=== PATIENT | female | born 1995 | race Caucasian/White ===

== ENCOUNTER 2018-05-03 05:44 | Inpatient (IN) | payer OTHER ==
[~2018-05-03] VITALS: Ht 167.6 cm; Wt 92.1 kg
[~2018-05-03 05:44] MED LIST: PREN1TAB46 PO; PTU; [UNRECOGNIZED DRUG - OTHER]
[2018-05-03] MEDS ORDERED: CITRIC ACID/SODIUM CITRATE 30 ML SOLUTION. PO ONE (06:00)
[2018-05-03] MEDS: IV RINGERS,LACTATED 1000ML 1,000 ML IV SCH ×2 (06:47→10:15)
[2018-05-03 07:04] LABS: HEMATOCRIT 27.9 % (36.0-47.0); HEMOGLOBIN 9.2 g/dL (12.0-15.5); RED BLOOD COUNT 3.54 x10^6/uL (3.50-5.40); RED CELL DISTRIBUTION WIDTH 14.8 % (11.5-14.5); WHITE BLOOD COUNT 13.4 x10^3/uL (4.0-11.0)
--- NOTE | 2018-05-03 07:04 | PDOC1 ---
OB - History Hx of Present Care: Good Care Ultrasounds: Normal mid trimester US Obstetrical Complications: None Medical Complications: None Past Family/Social History * Past Medical, Surgical, Family and Obstetric Histories reviewed from chart. Rubella: Immune RPR/VDRL: Negative GBS Status: Negative HBsAG: Negative OB - Chief Complaint & HPI Date of Admission: Date of Admission: May 03, 2018 at 05:44 Chief Complaint/History : 2 Para: 1 EGA: 39 Reason for admission: section Indication for : desires repeat Admission Nurse Assessment Rev: Yes OB - Admission Exam Physical Exam HEENT: Normal Heart: Regular Rate Lungs: Clear Abdomen: Gravid, Non tender, Soft Extremities: Edema Reflexes: Normal Cervical Dilatation: 1cm Effacement: 50% Station: -3 Membranes: Intact Heart Rate: Normal Accelerations: Accelerations Present Decelerations: No decelerations Contractions on Admission: 6-10 Minutes Apart Intensity: Mild Text A: 39 wks IUP Previous c/s P: Admit for repeat c/s. MIREILLE SMITH Jr, MD May 03, 2018 07:04
[2018-05-03] MEDS ORDERED: KETOROLAC 30 MG/ML VIAL. IV PRN ×2 (07:15→09:15)
[2018-05-03 07:52] LABS: BILIRUBIN,URINE NEGATIVE (NEG); CLARITY,URINE CLEAR; COLOR,URINE YELLOW; NITRITE,URINE NEGATIVE (NEG); PH,URINE 6.5; PROTEIN,URINE NEGATIVE (NEG-TRACE)
[2018-05-03] MEDS ORDERED: BUPIVACAINE MPF 0.75% DEXTROSE 2 ML AMPUL. ONE (07:54)
[2018-05-03] MEDS ORDERED: MORPHINE PF 5 MG/10 ML VIAL. ONE (07:55)
[2018-05-03] MEDS ORDERED: fentaNYL PF VIAL 100 MCG/2 ML VIAL ONE (07:55)
[2018-05-03] MEDS ORDERED: DEXAMETHASONE SOD PHOS 20 MG/5 ML VIAL. ONE (07:56)
[2018-05-03] MEDS ORDERED: ONDANSETRON PF 4 MG/2 ML VIAL. ONE (07:56)
[2018-05-03] MEDS ORDERED: PHENYLEPHRINE in 0.9% NACL PF 1 MG/10 ML SYRINGE. IV ONE (07:56)
[2018-05-03] MEDS ORDERED: OXYTOCIN 10 UNIT/ML VIAL. ONE ×3 (07:56)
[2018-05-03 08:02] LABS: BACTERIA,URINE 0 /HPF (0-FEW); RBC,URINE 0 /HPF (0-2); WBC,URINE OCC /HPF (0-4)
--- NOTE | 2018-05-03 09:04 | PDOC4 ---
OB Operative Note Date: May 03, 2018 PRE OP DIAGNOSIS: Previoujs C- section POST OP DIAGNOSIS: Previous C- section OPERATION PERFORMED: R [facility] Surgeon Dr. Ivan Composing Room Machinist Dr. Aleman Anesthesia: Regional (Spinal) Blood Loss 700 ml Specimen placenta and infant OB Findings: Position (Vertex), Sex (Male), (8/9), Weight (8 Lb), Fluid ( Clear), Nuchal Cord (x1) Complications none MIREILLE IVAN Jr, MD May 03, 2018 09:04
[2018-05-03] MEDS ORDERED: 0.9 % SODIUM CHLORIDE 10 ML DISP.SYRIN. IV PRN (09:15)
[2018-05-03] MEDS ORDERED: ONDANSETRON PF 4 MG/2 ML VIAL. IV PRN (09:15)
[2018-05-03] MEDS ORDERED: OXYTOCIN 30 UNIT/500 ML PREMIX 500 ML IV PRN (09:15)
[2018-05-03] MEDS ORDERED: diphenhydrAMINE ORAL ELIXIR 12.5 MG/5 ML ML PO PRN (09:15)
[2018-05-03] MEDS ORDERED: MAG HYDROX/ALUMINUM HYD/SIMETH 30 ML ORAL.SUSP PO PRN (09:15)
[2018-05-03] MEDS ORDERED: SIMETHICONE 80 MG TAB.CHEW PO PRN (09:15)
[2018-05-03] MEDS ORDERED: ZOLPIDEM 5 MG TABLET. PO PRN (09:15)
[2018-05-03] MEDS ORDERED: PHYTONADIONE NEONATAL 1 MG/0.5 ML SYRINGE. SQ ONE (09:30)
[2018-05-03] MEDS ORDERED: ERYTHROMYCIN 0.5% OPHTH OINTMENT 1GM TUBE. OU ONE (09:30)
[2018-05-03] MEDS ORDERED: HEPATITIS B VAX PF for NSY/VFC 10 MCG/0.5 ML SYRINGE. VAX IM ONE (09:30)
[2018-05-03] MEDS ORDERED: diphenhydrAMINE 50 MG/ML VIAL IVP PRN (10:30)
[2018-05-03 11:40] VITALS: BP 134/78
[2018-05-03 11:55] VITALS: BP 123/72
--- NOTE | 2018-05-03 11:56 | OP ---
DATE OF SURGERY: PREOPERATIVE DIAGNOSES: 1. 39 weeks intrauterine . 2. Previous section x 1. POSTOPERATIVE DIAGNOSES: 1. 39 weeks intrauterine . 2. Previous section x 1. PROCEDURE: Repeat low transverse section. SURGEON: Mireille Ivan MD LACE WINDER: Dr. Aleman. ANESTHESIA: Spinal. ESTIMATED BLOOD LOSS: 700 mL. COMPLICATIONS: None. FINDINGS: Viable male infant, Apgars 8 and 9, weight 8 pounds. Nuchal cord x 1, 3-vessel cord, placenta delivered manually. SUMMARY: A 22-year-old 2, para 1 at 39 weeks, presented for repeat section. She was counseled on the risks, benefits and expectations and voiced clear understanding to proceed. DESCRIPTION OF PROCEDURE: The patient was taken to surgery suite and placed in dorsal supine position. She was prepped with ChloraPrep and draped in sterile fashion. After adequate anesthesia, a Pfannenstiel skin incision was made with scalpel down to and through the fascia. Fascia was extended laterally using curved Nunez scissors. The superior edge of the fascia was grasped with 2 Renetta clamps and dissected free off the abdominal rectus muscles using blunt dissection along with Bovie cautery. The same process took place inferiorly. The abdominal rectus muscle was dissected bluntly at the midline. The left peritoneum was grasped with 2 hemostats and entered sharply with Metzenbaum scissors. This incision was extended superiorly as well as inferiorly. The Sonny ring retractor was placed. Bladder flap was created using Metzenbaum scissors and blunt dissection. A low transverse hysterotomy incision was made with scalpel down to the amniotic sac. The hysterotomy incision was extended laterally and superiorly digitally. Amniotomy was performed bluntly. With the aid of fundal pressure, the 's head was delivered in a smooth atraumatic manner. Nuchal cord x 1 was visualized and reduced. Additional fundal pressure, the anterior shoulder was delivered followed by posterior shoulder. Rest of male infant was delivered. Infant was suctioned with a bulb syringe orally and nasally. Umbilical cord was clamped twice and cut and viable male infant was handed to waiting nursing staff. Umbilical cord blood was then obtained. Three-vessel cord and placenta was delivered manually. The uterus was exteriorized, cleared of clot and debris with a moist lap. The hysterotomy incision was reapproximated using 1-0 Vicryl suture in running locked fashion. A [id number] suture was placed in the left apex of the hysterotomy incision for better hemostasis. Uterus palpated firm. Fallopian tubes and ovaries appeared normal bilaterally. Posterior cul-de-sac was cleared of clot and debris with moist lap. Uterus was returned to the abdomen. The hysterotomy incision was reviewed and was hemostatic. Pericolic gutters were cleared of clot and debris with a moist lap. Interceed was placed over the hysterotomy incision in an inverted T fashion. The Sonny ring retractor was removed. The peritoneum was reapproximated using 1-0 Vicryl in a running fashion. Fascia was reapproximated using 0 Vicryl suture in a running fashion. Skin was reapproximated using 4-0 Vicryl suture in subcuticular manner. The patient tolerated the procedure well and was taken to Recovery Room in stable condition. Sponge and needle count correct x 3. MIREILLE IVAN MD DR: ALEXIS/clem JOB#: [id number] / [id number]
[2018-05-03 12:20] VITALS: BP 107/66
[2018-05-03 12:50] VITALS: BP 116/82
[2018-05-03] MEDS ORDERED: DIPHTH,PERTUSS(ACELL),TET TOX 0.5 ML DISP.SYRIN. VAX IM ONE (13:00)
[2018-05-03 13:17] VITALS: BP 123/84
[2018-05-03] MEDS: DOCUSATE SODIUM 100 MG CAPSULE. PO PRN (17:07)
[2018-05-03] MEDS: FERROUS SULFATE 325 MG TABLET. PO SCH (17:07)
[2018-05-03 23:25] VITALS: BP 100/61
[2018-05-04] MEDS: IBUPROFEN 400 MG TABLET. PO PRN ×3 (00:52→18:13)
[2018-05-04 06:18] VITALS: BP 117/77
[2018-05-04] MEDS: FERROUS SULFATE 325 MG TABLET. PO SCH ×2 (07:10→16:16)
[2018-05-04] MEDS: DOCUSATE SODIUM 100 MG CAPSULE. PO SCH ×2 (07:10→20:48)
[2018-05-04] MEDS: oxyCODONE/APAP 5/325 1 TAB TABLET PO PRN ×2 (07:10→16:16)
[2018-05-04 07:29] LABS: BASO % 0 % (0-3); EOS % 0 % (0-3); LYMPH # 3.2 x10^3/uL (1.0-4.8); LYMPH % 26 % (24-48); MEAN CORPUSCULAR HEMOGLOBIN 26 pg (25-35); MEAN CORPUSCULAR HGB CONC 33 g/dL (31-37); MEAN CORPUSCULAR VOLUME 79 fL (79-100); MONO # 0.7 x10^3/uL (0.0-1.1); MONO % 6 % (0-9); NEUT # 8.2 x10^3uL (1.8-7.7); NEUT % 68 % (31-73); PLATELET COUNT 159 x10^3/uL (140-400); RED CELL DISTRIBUTION WIDTH 14.8 % (11.5-14.5); WHITE BLOOD COUNT 12.1 x10^3/uL (4.0-11.0)
[2018-05-04 07:31] LABS: HEMATOCRIT 20.5 % (36.0-47.0); HEMOGLOBIN 6.8 g/dL (12.0-15.5)
--- NOTE | 2018-05-04 10:30 | PDOC ---
OB Progress Note Date of Service 05/04/18 Time of Evaluation 1030 Notes Pt. feeling well. No c/o H/A, CP, SOB or dizziness with ambulation. Lab Laboratory Tests Test 05/03/18 06:20 05/03/18 07:20 05/04/18 06:55 White Blood Count 13.4 x10^3/uL (4.0-11.0) 12.1 x10^3/uL (4.0-11.0) Red Blood Count 3.54 x10^6/uL (3.50-5.40) 2.60 x10^6/uL (3.50-5.40) Hemoglobin 9.2 g/dL (12.0-15.5) 6.8 g/dL (12.0-15.5) Hematocrit 27.9 % (36.0-47.0) 20.5 % (36.0-47.0) Mean Corpuscular Volume 79 fL (79-100) 79 fL (79-100) Mean Corpuscular Hemoglobin 26 pg (25-35) 26 pg (25-35) Mean Corpuscular Hemoglobin Concent 33 g/dL (31-37) 33 g/dL (31-37) Red Cell Distribution Width 14.8 % (11.5-14.5) 14.8 % (11.5-14.5) Platelet Count 182 x10^3/uL (140-400) 159 x10^3/uL (140-400) Treponema pallidum Antibody Nonreactive (Nonreactive) Urine Collection Type Unknown Urine Color Yellow Urine Clarity Clear Urine pH 6.5 Urine Specific [place] 1.020 Urine Protein Negative mg/dL (NEG-TRACE) Urine Glucose (UA) Negative mg/dL (NEG) Urine Ketones (Stick) Negative mg/dL (NEG) Urine Blood Negative (NEG) Urine Nitrite Negative (NEG) Urine Bilirubin Negative (NEG) Urine Urobilinogen Dipstick 1.0 mg/dL (0.2 mg/dL) Urine Leukocyte Esterase Trace (NEG) Urine RBC 0 /HPF (0-2) Urine WBC Occ /HPF (0-4) Urine Squamous Epithelial Cells None /LPF Urine Bacteria 0 /HPF (0-FEW) Neutrophils (%) (Auto) 68 % (31-73) Lymphocytes (%) (Auto) 26 % (24-48) Monocytes (%) (Auto) 6 % (0-9) Eosinophils (%) (Auto) 0 % (0-3) Basophils (%) (Auto) 0 % (0-3) Neutrophils # (Auto) 8.2 x10^3uL (1.8-7.7) Lymphocytes # (Auto) 3.2 x10^3/uL (1.0-4.8) Monocytes # (Auto) 0.7 x10^3/uL (0.0-1.1) Eosinophils # (Auto) 0.0 x10^3/uL (0.0-0.7) Basophils # (Auto) 0.0 x10^3/uL (0.0-0.2) Laboratory Tests Test 05/04/18 06:55 White Blood Count 12.1 x10^3/uL (4.0-11.0) Red Blood Count 2.60 x10^6/uL (3.50-5.40) Hemoglobin 6.8 g/dL (12.0-15.5) Hematocrit 20.5 % (36.0-47.0) Mean Corpuscular Volume 79 fL (79-100) Mean Corpuscular Hemoglobin 26 pg (25-35) Mean Corpuscular Hemoglobin Concent 33 g/dL (31-37) Red Cell Distribution Width 14.8 % (11.5-14.5) Platelet Count 159 x10^3/uL (140-400) Neutrophils (%) (Auto) 68 % (31-73) Lymphocytes (%) (Auto) 26 % (24-48) Monocytes (%) (Auto) 6 % (0-9) Eosinophils (%) (Auto) 0 % (0-3) Basophils (%) (Auto) 0 % (0-3) Neutrophils # (Auto) 8.2 x10^3uL (1.8-7.7) Lymphocytes # (Auto) 3.2 x10^3/uL (1.0-4.8) Monocytes # (Auto) 0.7 x10^3/uL (0.0-1.1) Eosinophils # (Auto) 0.0 x10^3/uL (0.0-0.7) Basophils # (Auto) 0.0 x10^3/uL (0.0-0.2) Medications Current Medications Ringer's Solution 1,000 ml @ 125 mls/hr Q8H IV Last administered on at 10:15; Start 05/03/18 at 06:00 Cefazolin Sodium/ Dextrose 50 ml @ 100 mls/hr 1X ONCE IV Last administered on 05/03/18at 07:57; Start 05/03/18 at 06:00; Stop 05/03/18 at 06:29; Status DC Citric Acid/ Sodium Citrate (Bicitra) 30 ml 1X ONCE PO Last administered on at 07:57; Start 05/03/18 at 06:00; Stop 05/03/18 at 06:01; Status DC Ketorolac Tromethamine (Toradol 30mg Vial) 30 mg PRN Q6HRS PRN IV PAIN Last administered on 05/03/18at 17:07; Start 05/03/18 at 07:15; Stop 05/08/18 at 07 :14 Bupivacaine HCl/ Dextrose (Marcaine Spinal 0.75%) 2 ml STK-MED ONCE .ROUTE ; Start 05/03/18 at 07:54; Stop 05/03/18 at 07:55; Status DC Ephedrine Sulfate (Akovaz) 50 mg STK-MED ONCE .ROUTE ; Start 05/03/18 at 07:55 ; Stop 05/03/18 at 07:56; Status DC Morphine Sulfate (Morphine Preservative Free) 5 mg STK-MED ONCE .ROUTE ; Start 05/03/18 at 07:55; Stop 05/03/18 at 07:56; Status DC Fentanyl Citrate (Fentanyl 2ml Vial) 100 mcg STK-MED ONCE .ROUTE ; Start at 07:55; Stop 05/03/18 at 07:56; Status DC Oxytocin (Pitocin) 10 unit STK-MED ONCE .ROUTE ; Start 05/03/18 at 07:56; Stop 05/03/18 at 07:57; Status DC Oxytocin (Pitocin) 10 unit STK-MED ONCE .ROUTE ; Start 05/03/18 at 07:56; Stop 05/03/18 at 07:57; Status DC Oxytocin (Pitocin) 10 unit STK-MED ONCE .ROUTE ; Start 05/03/18 at 07:56; Stop 05/03/18 at 07:57; Status DC Dexamethasone Sodium Phosphate (Decadron) 20 mg STK-MED ONCE .ROUTE ; Start at 07:56; Stop 05/03/18 at 07:57; Status DC Ondansetron HCl (Zofran) 4 mg STK-MED ONCE .ROUTE ; Start 05/03/18 at 07:56; Stop 05/03/18 at 07:57; Status DC Phenylephrine HCl (PHENYLEPHRINE in 0.9% NACL PF) 1 mg STK-MED ONCE IV ; Start 05/03/18 at 07:56; Stop 05/03/18 at 07:57; Status DC Sodium Chloride (Normal Saline Flush) 3 ml QSHIFT PRN IV AFTER MEDS AND BLOOD DRAWS; Start 05/03/18 at 09:15 Oxytocin/Sodium Chloride 500 ml @ 125 mls/hr CONT PRN IV EXCESSIVE POST- BLEEDING; Start 05/03/18 at 09:15; Stop 05/03/18 at 17:14; Status DC Ibuprofen (Motrin) 800 mg PRN Q4HRS PRN PO INFLAMMATION Last administered on at 00:52; Start 05/03/18 at 09:15 Ondansetron HCl (Zofran) 4 mg PRN Q6HRS PRN IV NAUSEA/VOMITING; Start at 09:15 Docusate Sodium (Colace) 100 mg PRN BID PRN PO CONSTIPATION Last administered on 05/03/18at 17:07; Start 05/03/18 at 09:15 Al Hydroxide/Mg Hydroxide (Mylanta Plus Xs) 30 ml PRN Q4HRS PRN PO HEARTBURN / GAS; Start 05/03/18 at 09:15 Simethicone (Gas-X) 80 mg PRN AFTMEALHC PRN PO GAS / BLOATING; Start 05/03/18 at 09:15 Diphenhydramine HCl (Benadryl Oral Elixir) 12.5 mg PRN Q6HRS PRN PO ITCHING; Start 05/03/18 at 09:15 Ferrous Sulfate (Feosol) 325 mg BIDWMEALS PO Last administered on 05/04/18at 07 :10; Start 05/03/18 at 17:00 Zolpidem Tartrate (Ambien) 5 mg PRN QHS PRN PO INSOMNIA, MAY REPEAT X1; Start 05/03/18 at 09:15 Oxycodone/ Acetaminophen (Percocet 5/325) 2 tab PRN Q4HRS PRN PO MODERATE PAIN , SEVERE PAIN Last administered on 05/04/18at 07:10; Start 05/03/18 at 09:15 Ketorolac Tromethamine (Toradol 30mg Vial) 30 mg PRN Q6HRS PRN IV PAIN; Start 05/03/18 at 09:15; Stop 05/08/18 at 09:14; Status UNV Erythromycin (Romycin) 0.25 inch 1X ONCE OU ; Start 05/03/18 at 09:30; Stop 05/03/18 at 09:31; Status UNV Phytonadione (Vitamin K ) 1 mg 1X ONCE SQ ; Start 05/03/18 at 09:30; Stop 05/03/18 at 09:31; Status UNV Hepatitis B Vaccine (ENGERIX-B PEDI for NURSERY (VFC PROGRAM)) 10 mcg ONCE ONCE VAX IM ; Start 05/03/18 at 09:30; Stop 05/03/18 at 09:31; Status UNV Diphenhydramine HCl (Benadryl) 25 mg PRN Q6HRS PRN IVP ITCHING Last administered on 05/03/18at 10:38; Start 05/03/18 at 10:30 Diphtheria/ Tetanus/Acell Pertussis (Boostrix) 0.5 ml ONCE ONCE VAX IM Last administered on 05/03/18at 13:48; Start 05/03/18 at 13:00; Stop 05/03/18 at 13 :01; Status DC Influenza Virus Vaccine (Afluria Trivalent [id number] Syringe) 0.5 ml ONCE ONCE VAX IM Last administered on 05/03/18at 13:50; Start 05/03/18 at 13:00; Stop 05/03/18 at 13:01; Status DC Docusate Sodium (Colace) 100 mg DAILY PO Last administered on 05/04/18at 07:10 ; Start 05/04/18 at 09:00 Active Scripts Active Reported One Tablet ( Vit #108/Iron/Fa) 1 Each Tablet 1 Each PO DAILY [Ptu] 100 TIDBFRMEAL [Tsh] Exam Abd: soft, mild tenderness, fundus firm Incision site: clean, dry and intact Assessment POD#1 s/p repeat c/s Plan of Care: Continue current Tx, Mgmt MIREILLE SMITH Jr, MD May 04, 2018 10:30
[2018-05-04 13:57] VITALS: BP 116/75
[2018-05-04 23:12] VITALS: BP 136/86
[2018-05-05] MEDS: IBUPROFEN 400 MG TABLET. PO PRN ×3 (00:11→17:37)
[2018-05-05 06:31] VITALS: BP 121/82
[2018-05-05] MEDS: DOCUSATE SODIUM 100 MG CAPSULE. PO PRN (08:01)
[2018-05-05] MEDS: FERROUS SULFATE 325 MG TABLET. PO SCH ×2 (08:01→17:36)
[2018-05-05 10:15] VITALS: BP 122/79
--- NOTE | 2018-05-05 13:08 | PDOC ---
OB Progress Note Date of Service 05/05/18 Time of Evaluation 1305 Notes PT. feeling well. No complaints. Lab Laboratory Tests Test 05/04/18 06:55 White Blood Count 12.1 x10^3/uL (4.0-11.0) Red Blood Count 2.60 x10^6/uL (3.50-5.40) Hemoglobin 6.8 g/dL (12.0-15.5) Hematocrit 20.5 % (36.0-47.0) Mean Corpuscular Volume 79 fL (79-100) Mean Corpuscular Hemoglobin 26 pg (25-35) Mean Corpuscular Hemoglobin Concent 33 g/dL (31-37) Red Cell Distribution Width 14.8 % (11.5-14.5) Platelet Count 159 x10^3/uL (140-400) Neutrophils (%) (Auto) 68 % (31-73) Lymphocytes (%) (Auto) 26 % (24-48) Monocytes (%) (Auto) 6 % (0-9) Eosinophils (%) (Auto) 0 % (0-3) Basophils (%) (Auto) 0 % (0-3) Neutrophils # (Auto) 8.2 x10^3uL (1.8-7.7) Lymphocytes # (Auto) 3.2 x10^3/uL (1.0-4.8) Monocytes # (Auto) 0.7 x10^3/uL (0.0-1.1) Eosinophils # (Auto) 0.0 x10^3/uL (0.0-0.7) Basophils # (Auto) 0.0 x10^3/uL (0.0-0.2) Medications Current Medications Ringer's Solution 1,000 ml @ 125 mls/hr Q8H IV Last administered on at 10:15; Start 05/03/18 at 06:00 Cefazolin Sodium/ Dextrose 50 ml @ 100 mls/hr 1X ONCE IV Last administered on 05/03/18at 07:57; Start 05/03/18 at 06:00; Stop 05/03/18 at 06:29; Status DC Citric Acid/ Sodium Citrate (Bicitra) 30 ml 1X ONCE PO Last administered on at 07:57; Start 05/03/18 at 06:00; Stop 05/03/18 at 06:01; Status DC Ketorolac Tromethamine (Toradol 30mg Vial) 30 mg PRN Q6HRS PRN IV PAIN Last administered on 05/03/18at 17:07; Start 05/03/18 at 07:15; Stop 05/08/18 at 07 :14 Bupivacaine HCl/ Dextrose (Marcaine Spinal 0.75%) 2 ml STK-MED ONCE .ROUTE ; Start 05/03/18 at 07:54; Stop 05/03/18 at 07:55; Status DC Ephedrine Sulfate (Akovaz) 50 mg STK-MED ONCE .ROUTE ; Start 05/03/18 at 07:55 ; Stop 05/03/18 at 07:56; Status DC Morphine Sulfate (Morphine Preservative Free) 5 mg STK-MED ONCE .ROUTE ; Start 05/03/18 at 07:55; Stop 05/03/18 at 07:56; Status DC Fentanyl Citrate (Fentanyl 2ml Vial) 100 mcg STK-MED ONCE .ROUTE ; Start at 07:55; Stop 05/03/18 at 07:56; Status DC Oxytocin (Pitocin) 10 unit STK-MED ONCE .ROUTE ; Start 05/03/18 at 07:56; Stop 05/03/18 at 07:57; Status DC Oxytocin (Pitocin) 10 unit STK-MED ONCE .ROUTE ; Start 05/03/18 at 07:56; Stop 05/03/18 at 07:57; Status DC Oxytocin (Pitocin) 10 unit STK-MED ONCE .ROUTE ; Start 05/03/18 at 07:56; Stop 05/03/18 at 07:57; Status DC Dexamethasone Sodium Phosphate (Decadron) 20 mg STK-MED ONCE .ROUTE ; Start at 07:56; Stop 05/03/18 at 07:57; Status DC Ondansetron HCl (Zofran) 4 mg STK-MED ONCE .ROUTE ; Start 05/03/18 at 07:56; Stop 05/03/18 at 07:57; Status DC Phenylephrine HCl (PHENYLEPHRINE in 0.9% NACL PF) 1 mg STK-MED ONCE IV ; Start 05/03/18 at 07:56; Stop 05/03/18 at 07:57; Status DC Sodium Chloride (Normal Saline Flush) 3 ml QSHIFT PRN IV AFTER MEDS AND BLOOD DRAWS; Start 05/03/18 at 09:15 Oxytocin/Sodium Chloride 500 ml @ 125 mls/hr CONT PRN IV EXCESSIVE POST- BLEEDING; Start 05/03/18 at 09:15; Stop 05/03/18 at 17:14; Status DC Ibuprofen (Motrin) 800 mg PRN Q4HRS PRN PO INFLAMMATION Last administered on at 08:01; Start 05/03/18 at 09:15 Ondansetron HCl (Zofran) 4 mg PRN Q6HRS PRN IV NAUSEA/VOMITING; Start at 09:15 Docusate Sodium (Colace) 100 mg PRN BID PRN PO CONSTIPATION Last administered on 05/05/18at 08:01; Start 05/03/18 at 09:15 Al Hydroxide/Mg Hydroxide (Mylanta Plus Xs) 30 ml PRN Q4HRS PRN PO HEARTBURN / GAS Last administered on 05/04/18at 20:48; Start 05/03/18 at 09:15 Simethicone (Gas-X) 80 mg PRN AFTMEALHC PRN PO GAS / BLOATING; Start 05/03/18 at 09:15 Diphenhydramine HCl (Benadryl Oral Elixir) 12.5 mg PRN Q6HRS PRN PO ITCHING; Start 05/03/18 at 09:15 Ferrous Sulfate (Feosol) 325 mg BIDWMEALS PO Last administered on 05/05/18at 08 :01; Start 05/03/18 at 17:00 Zolpidem Tartrate (Ambien) 5 mg PRN QHS PRN PO INSOMNIA, MAY REPEAT X1; Start 05/03/18 at 09:15 Oxycodone/ Acetaminophen (Percocet 5/325) 2 tab PRN Q4HRS PRN PO MODERATE PAIN , SEVERE PAIN Last administered on 05/04/18at 16:16; Start 05/03/18 at 09:15 Ketorolac Tromethamine (Toradol 30mg Vial) 30 mg PRN Q6HRS PRN IV PAIN; Start 05/03/18 at 09:15; Stop 05/08/18 at 09:14; Status UNV Erythromycin (Romycin) 0.25 inch 1X ONCE OU ; Start 05/03/18 at 09:30; Stop 05/03/18 at 09:31; Status UNV Phytonadione (Vitamin K ) 1 mg 1X ONCE SQ ; Start 05/03/18 at 09:30; Stop 05/03/18 at 09:31; Status UNV Hepatitis B Vaccine (ENGERIX-B PEDI for NURSERY (VFC PROGRAM)) 10 mcg ONCE ONCE VAX IM ; Start 05/03/18 at 09:30; Stop 05/03/18 at 09:31; Status UNV Diphenhydramine HCl (Benadryl) 25 mg PRN Q6HRS PRN IVP ITCHING Last administered on 05/03/18at 10:38; Start 05/03/18 at 10:30 Diphtheria/ Tetanus/Acell Pertussis (Boostrix) 0.5 ml ONCE ONCE VAX IM Last administered on 05/03/18at 13:48; Start 05/03/18 at 13:00; Stop 05/03/18 at 13 :01; Status DC Influenza Virus Vaccine (Afluria Trivalent [id number] Syringe) 0.5 ml ONCE ONCE VAX IM Last administered on 05/03/18at 13:50; Start 05/03/18 at 13:00; Stop 05/03/18 at 13:01; Status DC Docusate Sodium (Colace) 100 mg DAILY PO Last administered on 05/04/18at 20:48 ; Start 05/04/18 at 09:00 Active Scripts Active Reported One Tablet ( Vit #108/Iron/Fa) 1 Each Tablet 1 Each PO DAILY [Ptu] 100 TIDBFRMEAL [Tsh] Exam ABd: soft, non tender, fundus firm INcision site: clean, dry and intact Assessment POD#2 s/p repeat c/s Plan of Care: Continue current Tx, Mgmt MIREILLE SMITH Jr, MD May 05, 2018 13:08
[2018-05-05 14:30] VITALS: BP 118/77
[2018-05-05] MEDS: DOCUSATE SODIUM 100 MG CAPSULE. PO SCH (17:37)
[2018-05-05 17:39] VITALS: BP 136/90
[2018-05-05 22:53] VITALS: BP 117/77
[2018-05-06] MEDS: IBUPROFEN 400 MG TABLET. PO PRN ×2 (02:28→08:25)
[2018-05-06 05:47] VITALS: BP 125/85
[2018-05-06] MEDS: FERROUS SULFATE 325 MG TABLET. PO SCH (08:25)
[2018-05-06 12:02] VITALS: BP 129/78
--- NOTE | 2018-05-06 15:16 | PDOC ---
Provider Note Provider Note Doing well Vital Sign - Last 24 Hours Incision without signs of infection FU in AM 05/05/18 05/05/18 05/05/18 05/06/18 17:39 22:35 22:53 05:47 Temp 98.5 98.2 98.0 98.5 98.2 98.0 Pulse 100 98 90 Resp 20 16 16 B/P (MAP) 136/90 (105) 117/77 (90) 125/85 (98) Pulse Ox 100 98 O2 Delivery Room Air Room Air 05/06/18 12:02 Temp 98.0 98.0 Pulse 82 Resp 18 B/P (MAP) 129/78 (95) Pulse Ox 98 SANGEETHA CANELA MD May 06, 2018 15:16
[2018-05-06] MEDS ORDERED: OXYC-323 PO (15:26)
[2018-05-06] MEDS ORDERED: NAPR-514 PO (15:26)
--- NOTE | 2018-05-06 15:28 | PDOC3 ---
OB DISCHARGE SUMMARY DATE OF ADMISSION: 05/03/18 DATE OF DISCHARGE: 05/06/18 REASON FOR ADMISSION: section PROCEDURES: None INTRAPARTUM PROCEDURES: : Low Cerv Trans PROCEDURES: None OPERATIONS: None DISCHARGE DIAGNOSIS: Term Delivered DISCHARGE INFORMATION: Activity, Diet HOSPITAL COURSE Unremarkable CONDITION AT DISCHARGE Stable SANGEETHA CANELA MD May 06, 2018 15:28
== END 2018-05-06 15:44 | disposition home or self-care (01) | DRG 788 ==
LOC: 3 SO LND 05:44 → 3 NORTH 11:18
PROVIDERS: ADMIT Obstetrics & Gynecology; ATTEND Obstetrics & Gynecology
PROC: 10D00Z1 Extraction of Products of Conception, Low, Open Approach (ICD-10-PCS; principal; 2018-05-03)
DX: O34.211 Maternal care for low transverse scar from previous cesarean delivery (principal); O69.81X0 Labor and delivery complicated by cord around neck, without compression, not applicable or unspecified; Z37.0 Single live birth; Z3A.39 39 weeks gestation of pregnancy
CPT/HCPCS: 36415; 81001; 85025; 85027; 86592; 86850; 86900; 86901; 87086; 90471; 90715; 90756; C1781; J0690; J1100; J1200; J1885; J2270; J2370; J2405; J2590; J3010; J7120; Q2035

== ENCOUNTER 2019-03-14 11:42 | Emergency (ER) | payer SELFPAY ==
[~2019-03-14] VITALS: Ht 167.6 cm; Wt 78.5 kg
[~2019-03-14 11:42] MED LIST changes: +NAPR-514 PO; +OXYC1TAB15 PO; -PREN1TAB46 PO; +PRENATAL ONE T1 EACH PO
[2019-03-14] MEDS ORDERED: IV NORMAL SALINE 1000ML BAG 1,000 ML IV SCH (11:55)
[2019-03-14 12:22] LABS: BASO % 1 % (0-3); EOS % 0 % (0-3); HEMATOCRIT 37.7 % (36.0-47.0); HEMOGLOBIN 12.5 g/dL (12.0-15.5); LYMPH # 2.6 x10^3/uL (1.0-4.8); LYMPH % 30 % (24-48); MEAN CORPUSCULAR HEMOGLOBIN 27 pg (25-35); MEAN CORPUSCULAR HGB CONC 33 g/dL (31-37); MEAN CORPUSCULAR VOLUME 81 fL (79-100); MONO # 0.5 x10^3/uL (0.0-1.1); MONO % 6 % (0-9); NEUT # 5.7 x10^3/uL (1.8-7.7); NEUT % 64 % (31-73); PLATELET COUNT 232 x10^3/uL (140-400); RED BLOOD COUNT 4.65 x10^6/uL (3.50-5.40); RED CELL DISTRIBUTION WIDTH 14.8 % (11.5-14.5); WHITE BLOOD COUNT 8.9 x10^3/uL (4.0-11.0)
[2019-03-14 12:29] LABS: BILIRUBIN,URINE NEGATIVE (NEG); CLARITY,URINE CLEAR; COLOR,URINE YELLOW; NITRITE,URINE NEGATIVE (NEG); PH,URINE 6.5; PROTEIN,URINE NEGATIVE (NEG-TRACE); UROBILINOGEN,URINE 0.2 mg/dL (0.2 mg/dL)
[2019-03-14 12:33] LABS: CALCIUM 8.7 mg/dL (8.5-10.1); CREATININE 0.7 mg/dL (0.6-1.0); GFR 105.6; POTASSIUM 3.9 mmol/L (3.5-5.1)
--- NOTE | 2019-03-14 12:35 | PHYS DOC ---
Past Medical History Past Medical History: No Pertinent History (KLARISSA GOMEZ APRN) Past Surgical History: (KLARISSA GOMEZ APRN) Alcohol Use: None Drug Use: None (KLARISSA GOMEZ APRN) Adult General Chief Complaint Chief Complaint: ABDOMINAL PAIN IN HPI HPI Patient is a 23 year old female who presents with last period in January and found out 2 weeks ago that she is by a home test. Patient had appointment with Dr. Marzena Kessler 11 but he got called away to deliver her baby. Patient states she didn't want to wait any longer. Patient states her last couple of days she's had diarrhea every time she ate with some abdominal cramping. Patient states the nausea and vomiting come and go. Patient states she has not ate anything today but has been drinking and keeping that down. Patient does not currently have any nausea or vomiting or abdominal pain. Patient has not had diarrhea today. Patient states she has some small amount of vaginal dis charge but does not think it's abnormal. Patient rates her pain at a 0 at this time. Patient refuses a pelvic exam today or STD testing and states that she wants to wait and see Dr. Santiago. Patient states she is more worried about the baby and dehydration. (KLARISSA GOMEZ APRN) Review of Systems Review of Systems Constitutional: Denies fever or chills [] GI: low mid abdominal pain, nausea, vomiting, diarrhea, denies bloody stools or diarrhea [] : Denies dysuria or hematuria [] Musculoskeletal: Denies back pain or joint pain [] Neurologic: Denies headache, focal weakness or sensory changes [] All other systems were reviewed and found to be within normal limits, except as documented in this note. (KLARISSA GOMEZ APRN) Current Medications Current Medications Current Medications Medications (Trade) Dose Ordered Sig/Radha Start Time Stop Time Status Last Admin Dose Admin Sodium Chloride 1,000 ml @ 1,000 mls/hr Q1H 03/14/19 11:55 03/14/19 12:54 DC 03/14/19 12:24 1,000 MLS/HR (KELLEY JOSHI DO) Allergies Allergies Allergies Coded Allergies Type Severity Reaction Last Updated Verified Sulfa (Sulfonamide Antibiotics) Allergy Mild Rash 09/27/13 Yes (KELLEY JOSHI DO) Physical Exam Physical Exam Constitutional: Well developed, well nourished, no acute distress, non-toxic appearance. [] Cardiovascular:Heart rate regular rhythm, no murmur [] Lungs & Thorax: Bilateral breath sounds clear to auscultation [] Abdomen: Bowel sounds normal, soft, no tenderness, no masses, no pulsatile masses. [] Skin: Warm, dry, no erythema, no rash. [] Back: No tenderness, no CVA tenderness. [] Neurologic: Alert and oriented X 3, normal motor function, normal sensory function, no focal deficits noted. [] Psychologic: Affect normal, judgement normal, mood normal. Normal Physical Exam[] (KLARISSA GOMEZ APRN) Current Patient Data Vital Signs Vital Signs Date Time Temp Pulse Resp B/P (MAP) Pulse Ox O2 Delivery O2 Flow Rate FiO2 03/14/19 13:30 82 15 113/60 (77) 99 Room Air 03/14/19 11:56 98.8 98.8 (KELLEY JOSHI DO) Lab Values Laboratory Tests Test 03/14/19 12:08 03/14/19 12:10 03/14/19 12:19 White Blood Count 8.9 x10^3/uL (4.0-11.0) Red Blood Count 4.65 x10^6/uL (3.50-5.40) Hemoglobin 12.5 g/dL (12.0-15.5) Hematocrit 37.7 % (36.0-47.0) Mean Corpuscular Volume 81 fL (79-100) Mean Corpuscular Hemoglobin 27 pg (25-35) Mean Corpuscular Hemoglobin Concent 33 g/dL (31-37) Red Cell Distribution Width 14.8 % (11.5-14.5) H Platelet Count 232 x10^3/uL (140-400) Neutrophils (%) (Auto) 64 % (31-73) Lymphocytes (%) (Auto) 30 % (24-48) Monocytes (%) (Auto) 6 % (0-9) Eosinophils (%) (Auto) 0 % (0-3) Basophils (%) (Auto) 1 % (0-3) Neutrophils # (Auto) 5.7 x10^3/uL (1.8-7.7) Lymphocytes # (Auto) 2.6 x10^3/uL (1.0-4.8) Monocytes # (Auto) 0.5 x10^3/uL (0.0-1.1) Eosinophils # (Auto) 0.0 x10^3/uL (0.0-0.7) Basophils # (Auto) 0.0 x10^3/uL (0.0-0.2) Maternal Serum HCG Beta Subunit 23282 mIU/mL (0-5) H Sodium Level 138 mmol/L (136-145) Potassium Level 3.9 mmol/L (3.5-5.1) Chloride Level 104 mmol/L (98-107) Carbon Dioxide Level 23 mmol/L (21-32) Anion Gap 11 (6-14) Blood Urea Nitrogen 8 mg/dL (7-20) Creatinine 0.7 mg/dL (0.6-1.0) Estimated GFR (Cockcroft-Gault) 105.6 BUN/Creatinine Ratio 11 (6-20) Glucose Level 81 mg/dL (70-99) Calcium Level 8.7 mg/dL (8.5-10.1) Total Bilirubin 0.4 mg/dL (0.2-1.0) Aspartate Amino Transferase (AST) 14 U/L (15-37) L Alanine Aminotransferase (ALT) 14 U/L (14-59) Alkaline Phosphatase 84 U/L (46-116) Total Protein 8.2 g/dL (6.4-8.2) Albumin 3.9 g/dL (3.4-5.0) Albumin/Globulin Ratio 0.9 (1.0-1.7) L Urine Color Yellow Urine Clarity Clear Urine pH 6.5 Urine Specific [place] 1.010 Urine Protein Negative mg/dL (NEG-TRACE) Urine Glucose (UA) Negative mg/dL (NEG) Urine Ketones (Stick) Negative mg/dL (NEG) Urine Blood Negative (NEG) Urine Nitrite Negative (NEG) Urine Bilirubin Negative (NEG) Urine Urobilinogen Dipstick 0.2 mg/dL (0.2 mg/dL) Urine Leukocyte Esterase Trace (NEG) Urine RBC 0 /HPF (0-2) Urine WBC 0 /HPF (0-4) Urine Squamous Epithelial Cells Few /LPF Urine Bacteria 0 /HPF (0-FEW) POC Urine HCG, Qualitative Hcg positive (Negative) Laboratory Tests 03/14/19 12:08 Laboratory Tests 03/14/19 12:08 (KELLEY JOSHI DO) EKG EKG [] (KLARISSA GOMEZ APRN) Radiology/Procedures Radiology/Procedures [] (KLARISSA GOMEZ APRN) Impressions: [facility] [address] [place] [address] IMAGING REPORT Signed PATIENT: JOSIAH SPRING ACCOUNT: [id number] : 1995 LOCATION: ER AGE: 23 SEX: F EXAM STATUS: REG ER ORD. PHYSICIAN: KLARISSA GOMEZ APRN REASON: abdominal pain in PROCEDURE: OB <14 WKS W/TV Examination: Obstetric ultrasound less than 14 weeks HISTORY: History of abdominal pain in COMPARISON: None available. FINDINGS: The uterus measures 10.2 x 6.1 x 6.6 cm. The right ovary measures 4.0 x 2.5 x 2.0 cm. The left ovary measures 3.6 x 2.3 x 3.7 cm. There is a cystic structure identified in the left ovary measuring 1.7 cm likely corpus luteal cyst. Intrauterine gestational sac identified. A yolk sac is identified. Single living intrauterine identified with heart rate of 152 beats per minute. The crown-rump length measures 1.1 cm corresponding to 7 weeks and 2 days. Estimated date of delivery by this ultrasound 10/29/2019. Given LMP 01/28/2019 . Clinical age is 6 weeks and 3 days with estimated delivery by LMP 11/04/2019. Small amount of free fluid identified in the cul-de-sac. Blood flow identified in the right and left ovaries. Probable pelvic varices identified, left greater than right. IMPRESSION: 1. Single living intrauterine with heart rate of 152 bpm. Other findings as described above. Electronically signed by: Shashank Nick MD (03/14/2019 2:10 PM) [id number] DICTATED and SIGNED BY: SHASHANK NICK MD DATE: 03/14/19 1770 (KLARISSA GOMEZ APRN) Course & Med Decision Making Course & Med Decision Making Patient is a 23 year old female who presents with last period in January and found out 2 weeks ago that she is by a home test. Patient had appointment with Dr. Marzena Kessler 11 but he got called away to deliver her baby. Patient states she didn't want to wait any longer. Patient states her last couple of days she's had diarrhea every time she ate with some abdominal cramping. Patient states the nausea and vomiting come and go. Patient states she has not ate anything today but has been drinking and keeping that down. Patient does not currently have any nausea or vomiting or abdominal pain. Patient has not had diarrhea today. Patient states she has some small amount of vaginal discharge but does not think it's abnormal. Patient rates her pain at a 0 at this time. Patient refuses a pelvic exam today or STD testing and states that she wants to wait and see Dr. Ivan. Patient states she is more worried about the baby and dehydration. Alert and oriented. Speaks in full clear sentences. Skin pink warm and dry. Abdomen soft and nontender. PERRLA. No extremity swelling. Mucous membranes moist. Vital signs within normal limits. Patient denies fever, numbness or tingling, chest pain, shortness of air, bloody diarrhea, recent illness, dysuria, vaginal bleeding, sexual transmitted disease concerns. Ultrasound shows 1. Single living intrauterine with heart rate of 152 bpm. Other findings as described above. Blood work unremarkable. Urinalysis shows no infection. Patient to follow-up with Dr. Ivan as soon as possible. I will prescribe her Zofran. Patient to use BRAT diet. (KLARISSA GOMEZ APRN) Dragon Disclaimer Dragon Disclaimer This electronic medical record was generated, in whole or in part, using a voice recognition dictation system. (KLARISSA GOMEZ APRN) Departure Departure Impression: Primary Impression: Nausea and vomiting during Additional Impressions: Diarrhea during Abdominal pain affecting Disposition: 01 HOME, SELF-CARE Condition: STABLE Referrals: MIREILLE IVAN Jr, MD (PCP) Patient Instructions: Abdominal Pain During , Diet for Diarrhea, Adult, Nausea and Vomiting Additional Instructions: Follow up with Dr Ivan as soon as possible. Plenty of fluids. Slowly increase her diet. Take Tylenol for any pain. Use Zofran for nausea. Scripts Ondansetron (ONDANSETRON ODT) 4 Mg Tab.rapdis 1 TAB PO PRN Q6-8HRS, #20 TAB Prov: KLARISSA GOMEZ APRN 03/14/19 Attending Signature Attending Signature I have reviewed the PA/[employer]'s note and plan of care. I was available for consultation as needed during the patient's visit in the emergency department. I agree with the clinical impression, plan, and disposition. (KELLEY JOSHI DO) Problem Qualifiers KLARISSA GOMEZ APRN Mar 14, 2019 12:34 KELLEY JOSHI DO Mar 15, 2019 12:17
[2019-03-14 12:38] LABS: ALBUMIN 3.9 g/dL (3.4-5.0); ALBUMIN/GLOBULIN RATIO 0.9 (1.0-1.7); TOTAL BILIRUBIN 0.4 mg/dL (0.2-1.0); TOTAL PROTEIN 8.2 g/dL (6.4-8.2)
[2019-03-14 12:43] LABS: BACTERIA,URINE 0 /HPF (0-FEW); RBC,URINE 0 /HPF (0-2); SQUAMOUS EPITHELIAL CELL,UR FEW /LPF; WBC,URINE 0 /HPF (0-4)
[2019-03-14 13:30] VITALS: BP 113/60
--- NOTE | 2019-03-14 14:13 | RAD ---
Examination: Obstetric ultrasound less than 14 weeks HISTORY: History of abdominal pain in COMPARISON: None available. FINDINGS: The uterus measures 10.2 x 6.1 x 6.6 cm. The right ovary measures 4.0 x 2.5 x 2.0 cm. The left ovary measures 3.6 x 2.3 x 3.7 cm. There is a cystic structure identified in the left ovary measuring 1.7 cm likely corpus luteal cyst. Intrauterine gestational sac identified. A yolk sac is identified. Single living intrauterine identified with heart rate of 152 beats per minute. The crown-rump length measures 1.1 cm corresponding to 7 weeks and 2 days. Estimated date of delivery by this ultrasound 10/29/2019. Given LMP 01/28/2019 . Clinical age is 6 weeks and 3 days with estimated delivery by LMP 11/04/2019. Small amount of free fluid identified in the cul-de-sac. Blood flow identified in the right and left ovaries. Probable pelvic varices identified, left greater than right. IMPRESSION: 1. Single living intrauterine with heart rate of 152 bpm. Other findings as described above. Electronically signed by: Shashank Nick MD (03/14/2019 2:10 PM) [facility]
[2019-03-14] MEDS ORDERED: ONDA4TAB12 PO (14:21)
== END 2019-03-14 14:33 | disposition home or self-care (01) ==
LOC: ER 11:42
DX: O21.9 Vomiting of pregnancy, unspecified (principal); R19.7 Diarrhea, unspecified; R10.30 Lower abdominal pain, unspecified; Z88.2 Allergy status to sulfonamides; Z3A.01 Less than 8 weeks gestation of pregnancy
CPT/HCPCS: 36415; 76801; 76817; 80053; 81001; 81025; 84702; 85025; 86850; 86900; 86901; 87086; 96360; 99285; J7030

== ENCOUNTER → 2019-08-16 | Outpatient (CLI) | payer OTHER ==
[~2019-08-16] MED LIST changes: +ONDA4TAB12 PO
--- NOTE | 2019-08-16 12:51 | KCIC ---
EXAM: Ultrasound OB Greater than 14 weeks INDICATION: Size dates discrepancy TECHNIQUE: Real-time obstetrical ultrasound was performed with permanent freeze-frame documentation. COMPARISON: OB ultrasound of 03/14/2019. FINDINGS: POSITION: Cephalic HEART RATE: 131 bpm URBANO: 11.3 cm PLACENTA: Posterior left lateral CERVICAL LENGTH: 4.6 cm MATERNAL UTERUS: Unremarkable. MATERNAL ADNEXA: Unremarkable. AGE/DATES: Gestational Age by LMP: 28 weeks 4 days Gestation Age by US: 31 weeks 6 days EDC by LMP: November 04, 2019 EDC by US: October 12, 2019 WEIGHT: 1706 grams +/- 252 grams PERCENTILE WEIGHT: 83%Unremarkable. BIOMETRIC PARAMETERS: BPD: 8.2 cm corresponding with 33 weeks 2 days HC: 29.4 cm corresponding with 32 weeks 3 days AC: 25.9 cm corresponding with 30 weeks 0 days FL: 6.2 cm corresponding with 31 weeks 6 days ANATOMY: CARDIAC: Normal four chamber heart. Normal right and left ventricular outflow tracts. UMBILICAL CORD: Normal 3 vessel cord. Normal cord insertion. BRAIN: Unremarkable. NOSE/LIPS: Unremarkable. SPINE: Unremarkable. EXTREMITIES: Unremarkable. STOMACH: Unremarkable. KIDNEYS: Unremarkable. BLADDER: Unremarkable. IMPRESSION: Normal OB ultrasound demonstrating a single viable fetus in cephalic position. Estimated gestational age of 31 weeks 6 days and EDC of October 12, 2019.. Electronically signed by: Thad Squires MD (08/16/2019 12:48 PM) [facility]
== END | disposition home or self-care (01) ==
LOC: KCIC US 09:19
PROVIDERS: ATTEND Obstetrics & Gynecology
DX: O26.843 Uterine size-date discrepancy, third trimester (principal); Z3A.31 31 weeks gestation of pregnancy
CPT/HCPCS: 76805

== ENCOUNTER 2019-08-22 17:08 | Observation (INO) | payer OTHER | END 2019-08-22 18:43 | disposition home or self-care (01) | LOC: 3 SO LND 17:08 → INTOOBSV 17:08 | PROVIDERS: ADMIT Obstetrics & Gynecology; ATTEND Obstetrics & Gynecology | DX: O26.893 Other specified pregnancy related conditions, third trimester (principal); R10.2 Pelvic and perineal pain; Z3A.30 30 weeks gestation of pregnancy | CPT/HCPCS: G0378; G0379; 59025 ==

== ENCOUNTER 2019-09-15 17:20 | Emergency (ER) | payer OTHER ==
[~2019-09-15] VITALS: Ht 170.2 cm; Wt 95.4 kg
[2019-09-15 17:50] LABS: BASO % 0 % (0-3); EOS % 0 % (0-3); HEMOGLOBIN 10.3 g/dL (12.0-15.5); LYMPH # 2.5 x10^3/uL (1.0-4.8); LYMPH % 17 % (24-48); MEAN CORPUSCULAR HEMOGLOBIN 26 pg (25-35); MEAN CORPUSCULAR HGB CONC 33 g/dL (31-37); MEAN CORPUSCULAR VOLUME 78 fL (79-100); MONO # 0.8 x10^3/uL (0.0-1.1); MONO % 6 % (0-9); NEUT # 11.4 x10^3/uL (1.8-7.7); NEUT % 77 % (31-73); PLATELET COUNT 247 x10^3/uL (140-400); RED BLOOD COUNT 3.98 x10^6/uL (3.50-5.40); RED CELL DISTRIBUTION WIDTH 14.9 % (11.5-14.5); WHITE BLOOD COUNT 14.8 x10^3/uL (4.0-11.0)
[2019-09-15 18:00] LABS: PROTHROMBIN TIME PATIENT 12.5 SEC (11.7-14.0)
[2019-09-15] MEDS ORDERED: IV NORMAL SALINE 1000ML BAG 1,000 ML IV ONE (18:00)
[2019-09-15 18:01] LABS: CALCIUM 8.7 mg/dL (8.5-10.1); CREATININE 0.7 mg/dL (0.6-1.0); GFR 104.6; POTASSIUM 3.6 mmol/L (3.5-5.1)
[2019-09-15 18:07] LABS: ALBUMIN 2.7 g/dL (3.4-5.0); ALBUMIN/GLOBULIN RATIO 0.6 (1.0-1.7); MAGNESIUM 1.8 mg/dL (1.8-2.4); TOTAL BILIRUBIN 0.7 mg/dL (0.2-1.0); TOTAL PROTEIN 7.3 g/dL (6.4-8.2)
--- NOTE | 2019-09-15 18:07 | PHYS DOC ---
Past Medical History Past Medical History: No Pertinent History, Hyperthyroid Past Surgical History: Smoking Status: Current Every Day Smoker Alcohol Use: None Drug Use: None Adult General Chief Complaint Chief Complaint: RAPID HEART RATE HPI HPI Patient is a 24 year old female who is 33 weeks presented to ER today for evaluation of heart palpitation. Patient has been experiencing palpitation over 2 months. Patient has been evaluated by her [employer] Doctor. She has a history of hyperthyroidism during her previous , her [employer] doctor has been monitoring her thyroid level and it has been okay. Patient denies any chest pain, no cough, no fever. Patient denies abdominal pain, no pelvic pain, no vaginal bleeding or discharge. Patient said her baby has been moving as normal. Patient says sometimes when her heart racing, she would have episode of shortness of air. Patient denies any history of blood clot disorder, no history of heart disease. Review of Systems Review of Systems Constitutional: Denies fever or chills [] Eyes: Denies change in visual acuity, redness, or eye pain [] HENT: Denies nasal congestion or sore throat [] Respiratory: Denies cough or shortness of breath [] Cardiovascular: No additional information not addressed in HPI [] GI: Denies abdominal pain, nausea, vomiting, bloody stools or diarrhea [] : Denies dysuria or hematuria [] Musculoskeletal: Denies back pain or joint pain [] Integument: Denies rash or skin lesions [] Neurologic: Denies headache, focal weakness or sensory changes [] Endocrine: Denies polyuria or polydipsia [] All other systems were reviewed and found to be within normal limits, except as documented in this note. Current Medications Current Medications Current Medications Medications (Trade) Dose Ordered Sig/Radha Start Time Stop Time Status Last Admin Dose Admin Ceftriaxone Sodium (Rocephin) 1 gm 1X ONCE 09/15/19 19:00 09/15/19 19:01 DC 09/15/19 19:03 1 GM Sodium Chloride 1,000 ml @ 1,000 mls/hr 1X ONCE 09/15/19 18:00 09/15/19 18:59 DC 09/15/19 18:05 1,000 MLS/HR Allergies Allergies Allergies Coded Allergies Type Severity Reaction Last Updated Verified Sulfa (Sulfonamide Antibiotics) Allergy Intermediate Rash 09/15/19 Yes Physical Exam Physical Exam Constitutional: Well developed, well nourished, no acute distress, non-toxic esme earance. [] HENT: Normocephalic, atraumatic, bilateral external ears normal, oropharynx moist, no oral exudates, nose normal. [] Eyes: PERRLA, EOMI, conjunctiva normal, no discharge. [] Neck: Normal range of motion, no tenderness, supple, no stridor. [] Cardiovascular:Heart rate regular rhythm, no murmur [] Lungs & Thorax: Bilateral breath sounds clear to auscultation [] Abdomen: Bowel sounds normal, soft, no tenderness, no masses, no pulsatile masses. [] Skin: Warm, dry, no erythema, no rash. [] Back: No tenderness, no CVA tenderness. [] Extremities: No tenderness, no cyanosis, no clubbing, ROM intact, no edema. [] Neurologic: Alert and oriented X 3, normal motor function, normal sensory function, no focal deficits noted. [] Psychologic: Affect normal, judgement normal, mood normal. [] Current Patient Data Vital Signs Vital Signs Date Time Temp Pulse Resp B/P (MAP) Pulse Ox O2 Delivery O2 Flow Rate FiO2 09/15/19 18:43 97.7 130 100 97.7 09/15/19 17:35 22 130/70 (90) Room Air Lab Values Laboratory Tests Test 09/15/19 17:33 09/15/19 18:15 White Blood Count 14.8 x10^3/uL (4.0-11.0) H Red Blood Count 3.98 x10^6/uL (3.50-5.40) Hemoglobin 10.3 g/dL (12.0-15.5) L Hematocrit 31.0 % (36.0-47.0) L Mean Corpuscular Volume 78 fL (79-100) L Mean Corpuscular Hemoglobin 26 pg (25-35) Mean Corpuscular Hemoglobin Concent 33 g/dL (31-37) Red Cell Distribution Width 14.9 % (11.5-14.5) H Platelet Count 247 x10^3/uL (140-400) Neutrophils (%) (Auto) 77 % (31-73) H Lymphocytes (%) (Auto) 17 % (24-48) L Monocytes (%) (Auto) 6 % (0-9) Eosinophils (%) (Auto) 0 % (0-3) Basophils (%) (Auto) 0 % (0-3) Neutrophils # (Auto) 11.4 x10^3/uL (1.8-7.7) H Lymphocytes # (Auto) 2.5 x10^3/uL (1.0-4.8) Monocytes # (Auto) 0.8 x10^3/uL (0.0-1.1) Eosinophils # (Auto) 0.0 x10^3/uL (0.0-0.7) Basophils # (Auto) 0.0 x10^3/uL (0.0-0.2) Prothrombin Time 12.5 SEC (11.7-14.0) Prothrombin Time INR 1.0 (0.8-1.1) Activated Partial Thromboplast Time 25 SEC (24-38) Sodium Level 138 mmol/L (136-145) Potassium Level 3.6 mmol/L (3.5-5.1) Chloride Level 104 mmol/L (98-107) Carbon Dioxide Level 25 mmol/L (21-32) Anion Gap 9 (6-14) Blood Urea Nitrogen 10 mg/dL (7-20) Creatinine 0.7 mg/dL (0.6-1.0) Estimated GFR (Cockcroft-Gault) 104.6 BUN/Creatinine Ratio 14 (6-20) Glucose Level 98 mg/dL (70-99) Calcium Level 8.7 mg/dL (8.5-10.1) Magnesium Level 1.8 mg/dL (1.8-2.4) Total Bilirubin 0.7 mg/dL (0.2-1.0) Aspartate Amino Transferase (AST) 15 U/L (15-37) Alanine Aminotransferase (ALT) 15 U/L (14-59) Alkaline Phosphatase 117 U/L (46-116) H Troponin I Quantitative < 0.017 ng/mL (0.000-0.055) LM-Jzt-G-Type Natriuretic Peptide 19 pg/mL (0-124) Total Protein 7.3 g/dL (6.4-8.2) Albumin 2.7 g/dL (3.4-5.0) L Albumin/Globulin Ratio 0.6 (1.0-1.7) L Lipase 207 U/L (73-393) Thyroid Stimulating Hormone (TSH) 1.011 uIU/mL (0.358-3.74) Free Thyroxine 1.10 ng/dL (0.76-1.46) Urine Collection Type Unknown Urine Color Yellow Urine Clarity Clear Urine pH 6.5 Urine Specific [place] 1.025 Urine Protein Negative mg/dL (NEG-TRACE) Urine Glucose (UA) Negative mg/dL (NEG) Urine Ketones (Stick) Negative mg/dL (NEG) Urine Blood Negative (NEG) Urine Nitrite Negative (NEG) Urine Bilirubin Negative (NEG) Urine Urobilinogen Dipstick 1.0 mg/dL (0.2 mg/dL) Urine Leukocyte Esterase Moderate (NEG) Urine RBC Rare /HPF (0-2) Urine WBC 20-40 /HPF (0-4) Urine Squamous Epithelial Cells Few /LPF Urine Amorphous Sediment Present /HPF Urine Bacteria Few /HPF (0-FEW) Urine Mucus Marked /LPF Laboratory Tests 09/15/19 17:33 Laboratory Tests 09/15/19 17:33 EKG EKG EKG was read by this physician at 1730, rate of 136 BPM, SINUS TACHYCARDIA, NO STEMI. Second EKG was done at 1828, rate of 99 BPM, sinus rhythm. No STEMI. Radiology/Procedures Radiology/Procedures [][facility] [address] [place] [address] IMAGING REPORT Signed PATIENT: JOSIAH SPRING ACCOUNT: [id number] : 1995 LOCATION: ER AGE: 24 SEX: F EXAM STATUS: REG ER ORD. PHYSICIAN: SE LOMELI DO REASON: legs swelling, , SHORTNESS OF AIR, TACHYCARDIA, EVALUATE FOR DVT PROCEDURE: VENOUS LOWER EXT BILATERAL EXAM: Bilateral lower extremity venous Doppler. HISTORY: Bilateral lower extremity pain/swelling. COMPARISON: None. FINDINGS: Grayscale and Doppler analysis of the both lower extremity deep venous systems was performed with graded compression and augmentation. The common femoral, greater saphenous, superficial femoral, popliteal and calf veins were assessed. There is no evidence of deep venous thrombosis. IMPRESSION: 1. No evidence of deep venous thrombosis bilateral lower extremities. Electronically signed by: Sol Squires MD (09/15/2019 7:07 PM) [id number] DICTATED and SIGNED BY: SOL SQUIRES MD DATE: 09/15/191906 Course & Med Decision Making Course & Med Decision Making Pertinent Labs and Imaging studies reviewed. (See chart for details) Patient is a 24-year-old female who is at 33 weeks, present to ER today due to her palpitations have been going on off and on for 2 months. Patient denies any chest pain, her vital signs oxygen saturation 100% on room air. Patient is in no distress. Her heart rate was 133 beats per minute sinus tachycardia, it slowed out to 99 beats per minute in the ER. Patient was found to have UTI, her thyroid function test was normal. Venous Doppler her lower extremity did not show DVT. Patient was found to have UTI. Patient will be put on antibiotic. Patient will follow-up with her [employer] doctor for reevaluation. Patient is amenable to plan of care. Dragon Disclaimer Dragon Disclaimer This electronic medical record was generated, in whole or in part, using a voice recognition dictation system. Departure Departure Impression: Primary Impression: UTI (urinary tract infection) Additional Impressions: Heart palpitations Disposition: HOME, SELF-CARE Condition: IMPROVED Referrals: SE DELGADO MD (PCP) Please follow-up with your [employer] doctor next week for reevaluation. Patient Instructions: ABCs of , Palpitations, Urinary Tract Infection Additional Instructions: Thank you for visiting our Emergency Department. We appreciate you trusting us with your care. If any additional problems come up don't hesitate to return to visit us. Please follow up with your primary care provider so they can plan additional care if needed and know about the problem that you had. If symptoms worsen come back to the Emergency Department. Any concerning symptoms that start such as chest pain, shortness of air, weakness or numbness on one side of the body, running high fevers or any other concerning symptoms return to the ER. Scripts Cephalexin (KEFLEX) 500 Mg Capsule 1 CAP PO QID for 7 Days, #28 CAP 0 Refills Prov: SE LOMELI DO 09/15/19 Problem Qualifiers SE LOMELI DO Sep 15, 2019 18:07
[2019-09-15 18:24] LABS: BILIRUBIN,URINE NEGATIVE (NEG); CLARITY,URINE CLEAR; COLOR,URINE YELLOW; NITRITE,URINE NEGATIVE (NEG); PH,URINE 6.5; PROTEIN,URINE NEGATIVE (NEG-TRACE)
[2019-09-15 18:30] LABS: SQUAMOUS EPITHELIAL CELL,UR FEW /LPF
[2019-09-15 18:31] LABS: AMORPHOUS SEDIMENT,UR PRESENT /HPF; BACTERIA,URINE FEW /HPF (0-FEW); RBC,URINE RARE /HPF (0-2); WBC,URINE 20-40 /HPF (0-4)
[2019-09-15 18:43] VITALS: BP 130/70
[2019-09-15] MEDS ORDERED: cefTRIAXone IV Push 1 GM VIAL. IVP ONE (19:00)
--- NOTE | 2019-09-15 19:10 | RAD ---
EXAM: Bilateral lower extremity venous Doppler. HISTORY: Bilateral lower extremity pain/swelling. COMPARISON: None. FINDINGS: Grayscale and Doppler analysis of the both lower extremity deep venous systems was performed with graded compression and augmentation. The common femoral, greater saphenous, superficial femoral, popliteal and calf veins were assessed. There is no evidence of deep venous thrombosis. IMPRESSION: 1. No evidence of deep venous thrombosis bilateral lower extremities. Electronically signed by: Thad Squires MD (09/15/2019 7:07 PM) [id number]
--- NOTE | 2019-09-15 19:19 | EKG ---
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
[2019-09-15] MEDS ORDERED: CEPH-264 PO (19:28)
--- NOTE | 2019-09-15 23:25 | EKG ---
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
== END 2019-09-15 19:39 | disposition home or self-care (01) ==
LOC: ER 17:20
DX: O99.413 Diseases of the circulatory system complicating pregnancy, third trimester (principal); R00.2 Palpitations; O23.43 Unspecified infection of urinary tract in pregnancy, third trimester; O99.333 Smoking (tobacco) complicating pregnancy, third trimester; Z3A.33 33 weeks gestation of pregnancy; Z88.2 Allergy status to sulfonamides
CPT/HCPCS: 36415; 80053; 81001; 83690; 83735; 83880; 84439; 84443; 84484; 85025; 85610; 85730; 87086; 93005; 93970; 96361; 96374; 99285; J0696; J7030

== ENCOUNTER 2019-10-14 02:49 | Observation (INO) | payer OTHER ==
[~2019-10-14 02:49] MED LIST changes: +CEPH-264 PO
[2019-10-14] MEDS ORDERED: IV RINGERS,LACTATED 1000ML 1,000 ML IV PRN (03:00)
[2019-10-14] MEDS ORDERED: ONDANSETRON PF 4 MG/2 ML VIAL. IVP PRN (03:00)
[2019-10-14] MEDS ORDERED: ACETAMINOPHEN 325 MG TABLET. PO PRN (03:00)
[2019-10-14 03:14] LABS: BILIRUBIN,URINE NEGATIVE (NEG); CLARITY,URINE CLEAR; COLOR,URINE YELLOW; NITRITE,URINE NEGATIVE (NEG); PROTEIN,URINE 30 mg/dL (NEG-TRACE)
[2019-10-14 03:23] LABS: BACTERIA,URINE MODERATE /HPF (0-FEW)
[2019-10-14 03:24] LABS: SQUAMOUS EPITHELIAL CELL,UR FEW /LPF
[2019-10-14 03:28] LABS: BARBITURATES NEG (NEG); BENZODIAZEPINES NEG (NEG); CANNABINOIDS NEG (NEG); COCAINE NEG (NEG); METHADONE NEG (NEG); OPIATES NEG (NEG); PHENCYCLIDINE NEG (NEG)
[2019-10-14 03:30] LABS: AMPHETAMINE/METHAMPHETAMINE NEG (NEG)
== END 2019-10-14 05:24 | disposition home or self-care (01) ==
LOC: 3 SO LND 02:49
PROVIDERS: ADMIT Obstetrics & Gynecology; ATTEND Obstetrics & Gynecology
DX: O21.2 Late vomiting of pregnancy (principal); O26.893 Other specified pregnancy related conditions, third trimester; R10.30 Lower abdominal pain, unspecified; R19.7 Diarrhea, unspecified; Z3A.37 37 weeks gestation of pregnancy
CPT/HCPCS: 80307; 81001; 87086; G0378; G0379

== ENCOUNTER 2019-10-19 18:24 | Observation (INO) | payer OTHER ==
[2019-10-19] MEDS ORDERED: IV RINGERS,LACTATED 1000ML 1,000 ML IV SCH (18:34)
[2019-10-19 19:05] LABS: BILIRUBIN,URINE SMALL (NEG); CLARITY,URINE CLEAR; COLOR,URINE AMBER; NITRITE,URINE NEGATIVE (NEG); PROTEIN,URINE 30 mg/dL (NEG-TRACE)
[2019-10-19 19:13] LABS: AMORPHOUS SEDIMENT,UR PRESENT /HPF; SQUAMOUS EPITHELIAL CELL,UR MANY /LPF
[2019-10-19 19:14] LABS: BACTERIA,URINE FEW /HPF (0-FEW); WBC,URINE 20-40 /HPF (0-4)
[2019-10-19 19:17] LABS: AMNIO PT NEGATIVE
[2019-10-25] MEDS ORDERED: DOCU-153 PO (12:16)
[2019-10-25] MEDS ORDERED: IBUP-1027 PO (12:16)
[2019-10-25] MEDS ORDERED: HYDR-2761 PO (12:16)
== END 2019-10-19 19:37 | disposition home or self-care (01) ==
LOC: 3 SO LND 18:24
PROVIDERS: ADMIT Obstetrics & Gynecology; ATTEND Obstetrics & Gynecology
DX: O42.92 Full-term premature rupture of membranes, unspecified as to length of time between rupture and onset of labor (principal); Z3A.38 38 weeks gestation of pregnancy; Z98.891 History of uterine scar from previous surgery; Z79.899 Other long term (current) drug therapy
CPT/HCPCS: 36415; 81001; 84112; 87086; G0378; G0379